=== PATIENT | male | born 1945 | race Caucasian/White ===

== ENCOUNTER 2022-12-14 12:24 | Emergency (ER) | payer MEDICARE, SELFPAY ==
[2022-12-14 12:25] VITALS: BP 159/96; PULSE 106; RESP 16; TEMP 36.6; O2SAT 98; BMI 18.8
[2022-12-14 13:20] VITALS: O2SAT 98
--- NOTE | 2022-12-14 13:20 | EKG12_ITS ---
Test Reason : SOB Blood Pressure : / mmHG Vent. Rate : 076 BPM Atrial Rate : 076 BPM P-R Int : 176 ms QRS Dur : 076 ms QT Int : 360 ms P-R-T Axes : 070 028 067 degrees QTc Int : 405 ms Normal sinus rhythm Normal ECG Confirmed by BENNETT LAZARO, CALI ([id number]), design editor ZECHARIAH SPRINGER ([id number]) on 12/16/2022 8:53:04 AM Referred By: Confirmed By:CALI GUAJARDO MD
[2022-12-14 13:47] LABS: Absolute Lymphocyte Count 1.04 X10^3/uL (0.83-4.51); Absolute Neutrophil Count 3.5 X10^3/uL (2.0-7.7); Basophil# 0.05 X10^3/uL; Eosinophil# 0.21 X10^3/uL; Hemoglobin 13.6 g/dL (13.0-16.5); Lymphocyte # 1.04 X10^3/ul (0.83-4.51); Lymphocyte % 19.9 % (19-41); Mean Corp Hgb Conc 34.9 g/dL (32-36); Mean Corpuscular Hgb 31.1 pg (27.0-32.0); Mean Corpuscular Volume 89.2 fL (80-94); Mean Platelet Vol. 9.6 fl (6.2-12.0); Monocyte# 0.38 X10^3/uL; Monocyte% 7.3 % (0-10); NRBC Flagged by Analyzer 0 % (0-5); Neutrophil # 3.52 X10^3/uL (2.7-7.7); Neutrophil % 67.4 % (47-70); Platelet Count 274 K/mm3 (150-450); RBC Distribution Width CV 13.8 % (11.6-14.6); Red Blood Count 4.37 M/mm3 (4.6-6.2); White Blood Count 5.2 K/mm3 (4.4-11.0)
[2022-12-14 13:52] LABS: Anion Gap 6 (5-15); BUN 10 mg/dL (7-18); BUN/Creat Ratio 11.2 RATIO (10-20); Calcium,Total 9.3 mg/dL (8.5-10.1); Chloride 106 mmol/L (98-107); EST Glomerular Filtration Rate 87 mL/min (>60); Est Glom Filt Rate - Afr Amer 105 mL/min (>60); Glucose 113 mg/dL (74-106); Potassium 3.7 mmol/L (3.5-5.1); Sodium Level 139 mmol/L (136-145)
[2022-12-14 13:56] VITALS: O2SAT 98
--- NOTE | 2022-12-14 14:09 | ED.VIS.DYS ---
HPI History of Present Illness Chief Complaint: Shortness of Breath Detail of Chief Complaint: Shortness of breath and achiness Informant: patient Narrative Narrative: Patient presents the emergency department complaint of feeling short of breath and developing generalized weakness while walking. Patient states normally he walks 2 miles a day and yesterday only got for about senior care and felt just drained and like he might pass out. [place] somewhat short of breath. Patient thought he would try it again today and again did not get very far when he started feeling just weak and short of breath. He denies any chest pain. Patient denies recent illness. He does state that he was on an antibiotic that he finished 3 weeks ago for sinus infection and then after he finished the amoxicillin he developed a rash. Patient has otherwise no medical history. He denies recent travel or surgery. No history of PE or DVT. No cardiac history. PFSH PFSH Medical History no medical history Allergy/AdvReac Type Severity Reaction Status Date / Time amoxicillin Allergy Rash Verified 12/14/22 12:29 Surgical History no surgical history Social History Smoking Status: Former smoker ROS ROS ED Review of Systems ROS Unobtainable: other Constitutional Constitutional ED: Reports lethargy; Denies chills, fever(s), sweats or weight loss Eyes Eyes: Denies blurry vision, change in vision or diplopia ENT ENT ED: Denies rhinorrhea or sore throat Cardiovascular Cardiovascular: Denies chest pain, orthopnea or racing heartbeat Respiratory/Chest Respiratory/Chest: Reports dyspnea and dyspnea on exertion; Denies cough, orthopnea or sputum Gastrointestinal Gastrointestinal: Denies abdominal pain, diarrhea, nausea or vomiting Genitourinary Genitourinary ED: Denies dysuria, hematuria or urinary frequency Musculoskeletal Musculoskeletal: Denies arthralgias, back pain, myalgias or neck pain Integumentary Denies abscess, Abrasions or rash Neurologic Neurologic: Reports weakness; Denies headache(s) Psychiatric Psychiatric: Denies anxiety, depression or suicidal thoughts Endocrine Endocrinology: Denies polydipsia, polyphagia or polyuria Hematologic/Lymphatic Hematologic/Lymphatic: Denies easy bleeding, easy bruising or lymphadenopathy Allergic/Immunologic Allergic/Immunologic ED: Denies mouth swelling, tongue swelling or urticaria EXAM Physical Exam Const Vital Signs: 12/14/22 12:25 12/14/22 13:20 12/14/22 13:20 Temperature 98 F Temperature Source Temporal Pulse Rate 106 H Respiratory Rate 16 Respiratory Effort Respiratory Depth Respiratory Pattern Blood Pressure 159/96 H Blood Pressure Mean 117 Pulse Ox 98 98 98 Oxygen Delivery Method Room Air Room Air 12/14/22 13:56 12/14/22 14:25 12/14/22 16:19 Temperature Temperature Source Pulse Rate 79 76 Respiratory Rate 18 15 Respiratory Effort Short of Breath Respiratory Depth Normal Respiratory Pattern Tachypnea Blood Pressure 152/84 H 152/85 H Blood Pressure Mean 106 107 Pulse Ox 97 98 Oxygen Delivery Method Room Air Room Air Positive well nourished and well developed General Appearance ED: well developed and NAD HEENT Reports TM's clear and moist mucous membranes normocephalic and atraumatic; Negative for trauma or tenderness Tympanic Membrane ED: Yes TM's clear Eyes PERRL and EOMs intact bilaterally General Eye ED: Negative for pale conjunctiva or scleral icterus Neck no lymphadenopathy, supple and no JVD General: Negative for tenderness Chest Wall inspection of chest normal and palpation of chest normal Chest: Negative for tenderness Resp normal respiratory effort and clear to auscultation bilaterally Effort and Inspection: Negative for respiratory distress or pain with movement Auscultation: Negative for rhonchi, wheezes or diminished lung sounds Cardio regular rate, regular rhythm, S1 normal heart sound, S2 normal heart sound and no murmurs Peripheral Pulses: pulses 2+ throughout GI normal to inspection, nondistended, normoactive bowel sounds, soft to palpation, non-tender, non-distended and no masses Back/Spine no CVA tenderness and no thoracic nor lumbar tenderness Extremity normal to inspection General Extremety ED: Negative for edema General Extremity: Negative for edema Neuro oriented x3, CN's II-XII intact bilaterally, no sensory deficits noted and gait normal Sensorium / Orientation: awake, alert, oriented to person, oriented to place and oriented to time Motor Exam: strength 5/5 throughout and strength abnormal Psych mental status grossly normal Skin no rashes or lesions noted and no wounds MDM MDM MDM Narrative Medical decision making narrative: Patient presents with some exertional dyspnea and generalized weakness. In the differential would be PE versus acute coronary syndrome versus infectious etiology which I feel is less likely. Patient had an IV line established on arrival. Patient placed on a hospital monitor. EKG obtained shows sinus rhythm with a rate of 76 bpm with no acute ST segment changes. CBC with differential was normal. Chemistries unremarkable. Initial troponin was normal. D-dimer was elevated 1.04. CTA of the chest obtained was negative for PE but did show a nodule which they recommended follow-up for. Patient is aware of the nodule and states he gets a CAT scan yearly to follow this and it has not changed in size. Patient had a delta troponin obtained that was normal. At this time etiology of his exertional dyspnea and generalized weakness unclear. Entertain the possibility of cardiac etiology and we had a long discussion and shared medical decision making regarding admission for stress testing versus outpatient follow-up. Patient states that he needs to be discharged to go attend to his dog and does not want to be admitted. Patient states that he can follow-up with his primary care physicians and get an outpatient stress test. Patient is advised to return if chest pain, increasing shortness of breath, or condition should worsen anyway. Lab Data Attestation: I reviewed the patient's lab results. Labs: Laboratory Results - last 24 hr 12/14/22 12/14/22 12/14/22 13:34 13:34 14:50 WBC 5.2 RBC 4.37 L Hgb 13.6 Hct 39.0 L MCV 89.2 MCH 31.1 MCHC 34.9 RDW Std Deviation 45.0 H RDW Coeff of Cara 13.8 Plt Count 274 MPV 9.6 Immature Gran % (Auto) 0.400 Neut % (Auto) 67.4 Lymph % (Auto) 19.9 [place] % (Auto) 7.3 Eos % (Auto) 4.0 Baso % (Auto) 1.0 Absolute Neuts (auto) 3.5 Absolute Lymphs (auto) 1.04 Nucleated RBC % 0 D-Dimer Quant (PE/DVT) 1.04 H* Sodium 139 Potassium 3.7 Chloride 106 Carbon Dioxide 27.0 Anion Gap 6 BUN 10 Creatinine 0.90 Estim Creat Clear Calc 57.10 Est GFR (MDRD) Af Amer 105 Est GFR (MDRD) Non-Af 87 BUN/Creatinine Ratio 11.2 Glucose 113 H Calcium 9.3 Troponin I High Sens 12/14/22 12/14/22 14:50 17:15 WBC RBC Hgb Hct MCV MCH MCHC RDW Std Deviation RDW Coeff of Cara Plt Count MPV Immature Gran % (Auto) Neut % (Auto) Lymph % (Auto) [place] % (Auto) Eos % (Auto) Baso % (Auto) Absolute Neuts (auto) Absolute Lymphs (auto) Nucleated RBC % D-Dimer Quant (PE/DVT) Sodium Potassium Chloride Carbon Dioxide Anion Gap BUN Creatinine Estim Creat Clear Calc Est GFR (MDRD) Af Amer Est GFR (MDRD) Non-Af BUN/Creatinine Ratio Glucose Calcium Troponin I High Sens 5 6 Radiography Diagnostic Testing: Clinical Impression(s) from Imaging Studies Chest X-Ray 12/14/22 14:17 IMPRESSION: No active or acute cardiopulmonary disease. Electronically Signed: Yoni Arreola, at 14:45 EDT , Chest CTA 12/14/22 15:39 IMPRESSION: No demonstrated pulmonary embolism or arterial dissection. 7 mm nodule in the right upper lobe. 4 mm nodule in the left upper lobe. Fleischner Society Guidelines (MacMahon, et al. Radiology 2017; 284(1):228-43) suggest the following. For low-risk patients recommend follow-up chest CT at 3-6 months. If unchanged consider an additional follow-up CT at 18-24 months. Electronically Signed: Patrick Appiah MD at 17:07 EDT , 1 view chest x-ray obtained interpreted by myself as no evidence of infiltrate or pneumothorax or acute disease process. Radiology in agreement. EKG Initial EKG: Attestation: I personally reviewed and interpreted this EKG as follows: Comments: Sinus rhythm with a rate of 76 bpm with no acute ST segment changes Discharge Plan Triage Chief Complaint: Shortness of Breath ED Provider: Marycruz Kennedy Dx/Rx/DC Orders Clinical Impression: Exertional dyspnea Instructions: ED Dyspnea Primary Care Provider: Jerome Bains Referrals: Jerome Bains DO [Primary Care Provider] - 1-2 Days if not improving Disposition Disposition: Home, Self Care
--- NOTE | 2022-12-14 14:17 | RAD_ITS ---
STUDY: X-RAY CHEST REASON FOR EXAM: Male, 77 years old. Shortness of breath. TECHNIQUE: Single frontal view of the chest. COMPARISON: None. FINDINGS: Borderline cardiomegaly with aortic tortuosity and calcification. Mild hyperinflation. No demonstrated abnormality of the visualized soft tissue structures of the upper abdomen. RAD/Chest 1 View (Portable) IMPRESSION: No active or acute cardiopulmonary disease. Electronically Signed: Yoni Arreola, at 14:45 EDT ,
[2022-12-14 14:25] VITALS: BP 152/84; PULSE 79; RESP 18; O2SAT 97
[2022-12-14 15:29] LABS: Troponin-I HS 5 pg/mL (3.0-78.0)
[2022-12-14] MEDS: Aspirin 81 MG TAB.CHEW 162 MG PO (15:36)
[2022-12-14 15:37] LABS: D-Dimer Quantitative (DVT/PE) 1.04 FEU/ug/m (0.27-0.49)
--- NOTE | 2022-12-14 15:39 | CT_ITS ---
STUDY: CTA Chest WO/W Contrast Injection 12/14/2022 5:03 PM REASON FOR EXAM: Male, 77 years old. dyspnea, elevated d-dimer TECHNIQUE: The examination was performed with the intravenous administration of IV 100mL Isovue-300 contrast material. Post-processing of the angiographic images was performed, with axial imaging and 3D reconstruction. MIPS images were obtained. Individualized dose optimization techniques were used for this CT. COMPARISON: None. FINDINGS: There are degenerative changes of the shoulders. There is no pneumothorax. There is no demonstrated pleural abnormality. 7 mm nodule in the right upper lobe. 4 mm nodule in the left upper lobe. Fleischner Society Guidelines (MacMahon, et al. Radiology 2017; 284(1):228-43) suggest the following. For low-risk patients recommend follow-up chest CT at 3-6 months. If unchanged consider an additional follow-up CT at 18-24 months. There are calcifications of the coronary arteries. Normal mediastinum. Normal hilar regions. Normal pulmonary arteries. There is atherosclerotic calcification of the aortic arch with tortuosity and elongation of the aortic arch and descending thoracic aorta. There are multi-level degenerative changes of the thoracic spine. There are no acute findings of the upper abdomen. CT/CTA Chest W/WO Contrast IMPRESSION: No demonstrated pulmonary embolism or arterial dissection. 7 mm nodule in the right upper lobe. 4 mm nodule in the left upper lobe. Fleischner Society Guidelines (MacMahon, et al. Radiology 2017; 284(1):228-43) suggest the following. For low-risk patients recommend follow-up chest CT at 3-6 months. If unchanged consider an additional follow-up CT at 18-24 months. Electronically Signed: Patrick Appiah MD at 17:07 EDT ,
[2022-12-14 16:19] VITALS: BP 152/85; PULSE 76; RESP 15; O2SAT 98
[2022-12-14 18:16] LABS: Troponin-I HS 6 pg/mL (3.0-78.0)
[2022-12-14 18:35] VITALS: BP 124/69; PULSE 71; RESP 16; O2SAT 98
== END 2022-12-14 18:36 | disposition home or self-care (01) ==
PROVIDERS: Emergency Provider Emergency Medicine; PCP Family Medicine; Visit Provider Emergency Medicine
DX: R06.09 Other forms of dyspnea (principal); Z87.891 Personal history of nicotine dependence
CPT/HCPCS: 71045; 71275; 80048; 84484; 85025; 85379; 87811; 93005; 94760; 99284; Q9967; A4216

== ENCOUNTER 2024-01-04 11:58 | Emergency (ER) | payer OTHER, SELFPAY ==
[2024-01-04 11:59] VITALS: BP 147/91; PULSE 105; RESP 14; TEMP 36.9; O2SAT 97; BMI 18.8
--- NOTE | 2024-01-04 12:12 | EDS_ITS ---
HPI History of Present Illness Chief Complaint: Male Pain/Injury Narrative Narrative: 78-year-old male states he has problems with his prostate. Over the last few weeks, he has had intermittent dribbling mixed with steady streams of urine. He states that his primary care provider started him on Flomax. He skipped a few days because of side effects because it made him very tired and wiped out. He was trying to catch up, and was taking it perhaps every other day, now presents with intermittent urinary retention. He states he has to stand and force his urine. He denies any hematuria, no other symptoms. He is afraid that his bladder may explode. PFSH PFSH Allergy/AdvReac Type Severity Reaction Status Date / Time amoxicillin Allergy Rash Verified 12/14/22 12:29 Social History Smoking Status: Former smoker ROS ROS ED ROS Narrative Constitutional: No fever, no chills. HEENT: No sore throat. No neck pain. No loss of vision. No rhinorrhea. Cardiovascular: No chest pain. No palpitations. No pedal edema. Respiratory: No cough, no shortness of breath. Abdominal: No abdominal pain. No nausea. No vomiting. Genitourinary: No dysuria. No hematuria. Intermittent urine dribbling versus steady stream when trying to urinate. Musculoskeletal: No myalgias. No arthralgias. Neurologic: No headaches. No dizziness. No lightheadedness. Skin: No rash. No change in color. Psychiatric: No depression. No anxiety. EXAM Physical Exam Narrative Exam Narrative: Afebrile. Vital signs noted. HEENT: Normocephalic. Atraumatic. PERRL, EOMI. Neck soft and supple. No point tenderness or step off. Cardiovascular: Regular rate and rhythm. No murmurs, rubs, or gallops appreciated. Respiratory: No tachypnea. Lungs clear to auscultation bilaterally. Gastrointestinal: Abdomen soft, nontender, with normoactive bowel sounds. No rebound or guarding. Neurological: Awake. Alert. Nonfocal, nonlateralizing. Skin: No rash. Normal color. No pallor. Musculoskeletal: No pedal edema. Full range of motion extremities. Const Vital Signs: 01/04/24 11:59 Temperature 98.5 F Temperature Source Temporal Pulse Rate 105 H Respiratory Rate 14 Blood Pressure 147/91 H Blood Pressure Mean 109 Pulse Ox 97 Oxygen Delivery Method Room Air MDM MDM MDM Narrative Medical decision making narrative: Concern is for enlarged prostate causing intermittent urinary retention versus urinary tract infection. I ordered a bladder scan and a UA. I obtained basic laboratory work and reviewed it. He has a normal white count of 6.5, hemoglobin normal at 15.3, hematocrit 45.4, platelet count normal at 306. Electrolyte panel is significant for sodium of 134 which I think is nonspecific, he was bolused normal saline 1 L intravenously. He has a normal BUN/low at 6 with creatinine normal at 1.08. Urinalysis was obtained and is negative for ketones and negative for infection with 0-5 WBCs. I do not feel antibiotics are indicated. His postvoid residual bladder scan only showed 2 mL. At this point in time, I feel he be discharged to follow-up with his primary care provider, and he was referred to urology as well. He was told that he should start to take his Flomax again 1 tablet daily as he had been instructed previously because he had stopped this previously. I do not feel he requires observation or admission. Return instructions reviewed. Disposition is discharged home in stable condition. Lab Data Attestation: I reviewed the patient's lab results. Labs: Laboratory Results - last 24 hr 01/04/24 01/04/24 12:25 12:34 WBC 6.5 RBC 5.05 Hgb 15.3 Hct 45.4 MCV 89.9 MCH 30.3 MCHC 33.7 RDW Std Deviation 43.9 RDW Coeff of Cara 13.3 Plt Count 306 MPV 8.9 Immature Gran % (Auto) 0.300 Neut % (Auto) 73.9 H Lymph % (Auto) 17.5 L Weber % (Auto) 6.6 Eos % (Auto) 0.9 Baso % (Auto) 0.8 Absolute Neuts (auto) 4.8 Absolute Lymphs (auto) 1.14 Nucleated RBC % 0 Sodium 134 L Potassium 3.7 Chloride 100 Carbon Dioxide 30.0 Anion Gap 4 L BUN 6 L Creatinine 1.08 Estim Creat Clear Calc 46.79 Est GFR (MDRD) Af Amer 85 Est GFR (MDRD) Non-Af 70 BUN/Creatinine Ratio 5.6 L Glucose 134 H Calcium 9.8 Urine Color Yellow Urine Clarity Clear Urine pH 7.0 Ur Specific [place] 1.010 Urine Protein Negative Urine Glucose (UA) Normal Urine Ketones Negative Urine Occult Blood 10 H Urine Nitrite Negative Urine Bilirubin Negative Urine Urobilinogen Normal Ur Leukocyte Esterase 25 H Urine RBC 0-5 SEEN Urine WBC 0-5 SEEN Ur Squamous Epith Cells 0-5 SEEN Urine Bacteria 0 SEEN Urine Mucus 0 SEEN Discharge Plan Triage Chief Complaint: Male Pain/Injury ED Provider: Ubaldo Chan Dx/Rx/DC Orders Clinical Impression: Difficulty urinating, Decreased urine stream Instructions: ED Dysuria, Uncertain Cause (Adult) Primary Care Provider: Jerome Bains Referrals: Jerome Bains DO [Primary Care Provider] - 3-5 Days Rashawn Sanches MD [Med Staff - Active Staff] - As soon as possible Activity Restrictions/Additional Instructions: You should restart your flomax 1 tablet by mouth daily as previously directed by your primary care provider. Follow up with Dr. Sanches with urology as soon as possible. Print Language: Icelandic Disposition Disposition: Home, Self Care
[2024-01-04] MEDS: 0.9% Normal Saline (1000mL) 1,000 ML 999 ML IV (12:25)
[2024-01-04 12:40] LABS: Absolute Lymphocyte Count 1.14 X10^3/uL (0.83-4.51); Absolute Neutrophil Count 4.8 X10^3/uL (2.0-7.7); Basophil# 0.05 X10^3/uL; Basophil% 0.8 % (0-1); Eosinophil# 0.06 X10^3/uL; Eosinophils% 0.9 % (0-5); Hematocrit 45.4 % (40-54); Hemoglobin 15.3 g/dL (13.0-16.5); Lymphocyte # 1.14 X10^3/ul (0.83-4.51); Lymphocyte % 17.5 % (19-41); Mean Corp Hgb Conc 33.7 g/dL (32-36); Mean Corpuscular Hgb 30.3 pg (27.0-32.0); Mean Corpuscular Volume 89.9 fL (80-94); Mean Platelet Vol. 8.9 fl (6.2-12.0); Monocyte# 0.43 X10^3/uL; Monocyte% 6.6 % (0-10); NRBC Flagged by Analyzer 0 % (0-5); Neutrophil # 4.83 X10^3/uL (2.7-7.7); Neutrophil % 73.9 % (47-70); Platelet Count 306 K/mm3 (150-450); RBC Distribution Width CV 13.3 % (11.6-14.6); RBC Distribution Width SD 43.9 fl (35.1-43.9); Red Blood Count 5.05 M/mm3 (4.6-6.2); White Blood Count 6.5 K/mm3 (4.4-11.0)
[2024-01-04 12:45] LABS: Bacteria 0 SEEN /hpf (None Seen); Mucous, Urine 0 SEEN /hpf (<or=2+)
[2024-01-04 12:47] LABS: Color, Urine Yellow (Yellow); Glucose, Dipstick Normal (Normal); Ketone-Dipstick Negative (Negative); Leukocyte Esterase-Dipstick 25 /ul (Negative); Nitrite-Dipstick Negative (Negative); Occult Blood-Urine 10 /ul (Negative); Protein-Dipstick Negative (Negative); Urine Bilirubin Dipstick Negative (Negative); Urine Clarity Clear (Clear); Urine Urobilinogen Normal (Normal)
[2024-01-04 12:55] LABS: Red Blood Cells-Urine 0-5 SEEN /hpf (0-5); Squamous Epithelial Cells - UA 0-5 SEEN /hpf (0-5); White Blood Cells 0-5 SEEN /hpf (0-5)
[2024-01-04 12:59] LABS: Anion Gap 4 (5-15); BUN 6 mg/dL (7-18); BUN/Creat Ratio 5.6 RATIO (10-20); Calcium,Total 9.8 mg/dL (8.5-10.1); Chloride 100 mmol/L (98-107); Creatinine, Serum 1.08 mg/dL (0.70-1.30); EST Glomerular Filtration Rate 70 mL/min (>60); Est Glom Filt Rate - Afr Amer 85 mL/min (>60); Estimated Creatinine Clearance 46.79 ml/min; Glucose 134 mg/dL (74-106); Potassium 3.7 mmol/L (3.5-5.1); Sodium Level 134 mmol/L (136-145)
[2024-01-04 14:09] VITALS: BP 161/82; PULSE 79; RESP 16; TEMP 35.9; O2SAT 97
== END 2024-01-04 14:09 | disposition home or self-care (01) ==
PROVIDERS: Emergency Provider Emergency Medicine; PCP Family Medicine; Visit Provider Emergency Medicine
DX: R33.9 Retention of urine, unspecified (principal); Z87.891 Personal history of nicotine dependence
CPT/HCPCS: 80048; 81001; 85025; 99282; J7030; A4216

== ENCOUNTER 2024-01-06 12:42 | Emergency (ER) | payer OTHER, SELFPAY ==
[2024-01-06 12:43] VITALS: BP 147/84; PULSE 115; RESP 16; TEMP 37.1; O2SAT 97; BMI 19.1
--- NOTE | 2024-01-06 12:53 | EX.ED.DYSGE1 ---
HPI History of Present Illness Chief Complaint: Hypertension Informant: patient Onset/Context/Timing Onset: Today Context: Gradual Onset Timing: Waxes and wanes Quality: Lightheaded Location: Generalized Worsened by: Nothing Relieved by: Nothing Narrative Narrative: Patient presents with elevated blood pressure that he noticed today. Patient states that his blood pressure at home was 230s systolic. Patient states he was feeling lightheaded. Patient states he checked his blood pressure with a home blood pressure cuff that goes around his wrist. Patient states that he is feeling like he might pass out. Patient denies any chest pain or shortness of breath. Patient denies any nausea or vomiting. Patient denies any diaphoresis. Patient states that he is on Flomax but does not like the way it makes him feel. Patient states that he is unable to urinate unless he takes his Flomax daily. [facility] Medical History (Updated 01/06/24 @ 15:[address] Robert Frias DO) BPH (benign prostatic hyperplasia) Hypertension Home Medications ?Medication ?Instructions ?Recorded ?Last Taken ?Type tamsulosin 0.4 mg capsule 0.4 mg PO DAILY 01/06/24 Unknown History Allergy/AdvReac Type Severity Reaction Status Date / Time amoxicillin Allergy Rash Verified 01/06/24 12:45 Social History Smoking Status: Former smoker ROS ROS ED Constitutional Constitutional ED: Denies chills or fever(s) Eyes Eyes: Reports blurry vision; Denies change in vision ENT ENT ED: Denies rhinorrhea or sore throat Cardiovascular Cardiovascular: Denies chest pain or palpitations Respiratory/Chest Respiratory/Chest: Denies cough or dyspnea Gastrointestinal Gastrointestinal: Denies nausea or vomiting Genitourinary Genitourinary ED: Denies dysuria or hematuria Musculoskeletal Musculoskeletal: Denies back pain or neck pain Integumentary Denies abscess or rash Neurologic Neurologic: Denies headache(s) or weakness Allergic/Immunologic Allergic/Immunologic ED: Denies mouth swelling or urticaria EXAM Physical Exam Const Vital Signs: 01/06/24 12:43 01/06/24 12:55 01/06/24 14:43 Temperature 98.7 F Temperature Source Temporal Pulse Rate 115 H 81 Respiratory Rate 16 16 Respiratory Effort Normal Respiratory Pattern Normal Blood Pressure 147/84 H 148/71 H Blood Pressure Mean 105 96 Pulse Ox 97 97 Oxygen Delivery Method Room Air Room Air Positive well nourished and well developed General Appearance ED: well developed and NAD HEENT Reports moist mucous membranes Neck supple and no JVD Resp normal respiratory effort and clear to auscultation bilaterally Cardio regular rate and regular rhythm GI non-tender and non-distended Palpation: soft Extremity normal to inspection General Extremety ED: Negative for edema or tenderness General Extremity: Negative for edema Neuro oriented x3, CN's II-XII intact bilaterally and no sensory deficits noted Sensorium / Orientation: alert Motor Exam: strength 5/5 throughout Psych mental status grossly normal MDM MDM MDM Narrative Medical decision making narrative: Differential diagnosis includes hypertensive urgency, hypertensive emergency, accelerated hypertension, cardiac dysrhythmia, cardiac ischemia, electrolyte abnormality, and acute kidney injury. EKG will be obtained to assess for cardiac dysrhythmia and cardiac ischemia. Chest x-ray will be obtained to assess for pneumonia and widened mediastinum. CBC will be obtained to assess for leukocytosis and anemia. Basic metabolic profile will be obtained to assess for electrolyte abnormality and renal function. High-sensitivity troponin will be obtained to assess for cardiac ischemia. Lab Data Attestation: I reviewed the patient's lab results. Lab results narrative: CBC was reviewed and was within normal limits. Basic metabolic profile was reviewed and was within normal limits. High-sensitivity troponin was reviewed and was normal. Labs: Laboratory Results - last 24 hr 01/06/24 13:42 WBC 4.6 RBC 4.40 L Hgb 13.1 Hct 39.1 L MCV 88.9 MCH 29.8 MCHC 33.5 RDW Std Deviation 43.7 RDW Coeff of Cara 13.3 Plt Count 241 MPV 9.0 Immature Gran % (Auto) 0.200 Neut % (Auto) 66.9 Lymph % (Auto) 22.7 [place] % (Auto) 7.6 Eos % (Auto) 1.3 Baso % (Auto) 1.3 H Absolute Neuts (auto) 3.1 Absolute Lymphs (auto) 1.04 Nucleated RBC % 0 Sodium 136 Potassium 3.8 Chloride 103 Carbon Dioxide 26.0 Anion Gap 7 BUN 5 L Creatinine 0.88 Estim Creat Clear Calc 58.21 Est GFR (MDRD) Af Amer 108 Est GFR (MDRD) Non-Af 89 BUN/Creatinine Ratio 5.7 L Glucose 129 H Calcium 9.4 Troponin I High Sens 5 Radiography Chest X-Ray - ED: 2 View, Read by ED Physician, Read by Radiologist and No Acute Disease Diagnostic Testing: Clinical Impression(s) from Imaging Studies Chest X-Ray 01/06/24 13:45 IMPRESSION: Mild increased markings in the right infrahilar region. Early infiltrate should be ruled out. Electronically Signed: Hollis Wahl MD at 14:00 EDT , PA and lateral chest x-rays obtained. There are 2 views. On my independent interpretation, there are mild increased markings in the right infrahilar region. Bony thorax is normal. There is no cardiomegaly noted. This was interpreted by the radiologist was also independently reviewed by myself. EKG Initial EKG: Attestation: I personally reviewed and interpreted this EKG as follows: Interpretation: Sinus Rhythm (78) and No Acute Injury Pattern Comments: EKG was obtained. On my independent interpretation, it showed a normal sinus rhythm with a rate of 78. TX interval, QRS interval, and QTc intervals were all normal. [place] was normal. There are no acute ST or T wave changes. Prior EKG tracings: available for review Prior: Unchanged (12/14/2022) Treatment and Re-Evaluation :: Patient was advised of his findings. Since the patient does not have any cough, fever, chills, or shortness of breath, I do not feel that the chest x-ray findings are from a pneumonia. Patient is feeling better on reevaluation. Patient was instructed to follow-up with his primary care physician in 5 to 7 days. Patient was instructed to continue to monitor his blood pressure at home. Patient was instructed to return if worse in any way. Patient understood and was agreeable with the plan. All questions were answered. Discharge Plan Triage Chief Complaint: Hypertension ED Provider: Robert Frias Dx/Rx/DC Orders Clinical Impression: Hypertension, BPH (benign prostatic hyperplasia) Instructions: ED High Blood Pressure Hypertension Prescriptions: No Action tamsulosin 0.4 mg capsule 0.4 mg PO DAILY Primary Care Provider: Jerome Bains Referrals: Jerome Bains DO [Primary Care Provider] - 5-7 Days Print Language: Thai Disposition Disposition: Home, Self Care
--- NOTE | 2024-01-06 13:27 | EKG12_ITS ---
Test Reason : HTN Blood Pressure : / mmHG Vent. Rate : 078 BPM Atrial Rate : 078 BPM P-R Int : 168 ms QRS Dur : 072 ms QT Int : 348 ms P-R-T Axes : 079 018 072 degrees QTc Int : 396 ms Normal sinus rhythm Normal ECG When compared with ECG of 14-DEC-2022 13:26, No significant change was found Confirmed by BENNETT LAZARO, CALI ([id number]), primer expeditor and drier ZECHARIAH SPRINGER ([id number]) on 01/11/2024 10:04:25 AM Referred By: Confirmed By:CALI GUAJARDO MD
--- NOTE | 2024-01-06 13:45 | RAD_ITS ---
STUDY: X-RAY CHEST REASON FOR EXAM: Male, 78 years old. Hypertension TECHNIQUE: PA and lateral views of the chest. COMPARISON: Comparison is made with prior study dated December 14, 2022. FINDINGS: EKG electrodes are seen. Hyperinflation. Mild increased markings in the right infrahilar region. Early infiltrate should be ruled out. There is no demonstrated pleural abnormality. Normal size heart. Normal mediastinum and aileen. Normal visualized pulmonary arteries. Normal visualized aortic arch and descending thoracic aorta. There are diffuse degenerative changes of the visualized thoracic spine. Normal visualized ribs, clavicles, and shoulders. There is no demonstrated abnormality of the visualized soft tissue structures of the upper abdomen. RAD/Chest PA and Lateral IMPRESSION: Mild increased markings in the right infrahilar region. Early infiltrate should be ruled out. Electronically Signed: Hollis Wahl MD at 14:00 EDT ,
[2024-01-06 13:55] LABS: Absolute Lymphocyte Count 1.04 X10^3/uL (0.83-4.51); Absolute Neutrophil Count 3.1 X10^3/uL (2.0-7.7); Basophil# 0.06 X10^3/uL; Basophil% 1.3 % (0-1); Eosinophil# 0.06 X10^3/uL; Eosinophils% 1.3 % (0-5); Hematocrit 39.1 % (40-54); Hemoglobin 13.1 g/dL (13.0-16.5); Lymphocyte # 1.04 X10^3/ul (0.83-4.51); Lymphocyte % 22.7 % (19-41); Mean Corp Hgb Conc 33.5 g/dL (32-36); Mean Corpuscular Hgb 29.8 pg (27.0-32.0); Mean Corpuscular Volume 88.9 fL (80-94); Monocyte# 0.35 X10^3/uL; Monocyte% 7.6 % (0-10); NRBC Flagged by Analyzer 0 % (0-5); Neutrophil # 3.06 X10^3/uL (2.7-7.7); Neutrophil % 66.9 % (47-70); Platelet Count 241 K/mm3 (150-450); RBC Distribution Width CV 13.3 % (11.6-14.6); RBC Distribution Width SD 43.7 fl (35.1-43.9); White Blood Count 4.6 K/mm3 (4.4-11.0)
[2024-01-06 14:34] LABS: Anion Gap 7 (5-15); BUN 5 mg/dL (7-18); BUN/Creat Ratio 5.7 RATIO (10-20); Calcium,Total 9.4 mg/dL (8.5-10.1); Chloride 103 mmol/L (98-107); Creatinine, Serum 0.88 mg/dL (0.70-1.30); EST Glomerular Filtration Rate 89 mL/min (>60); Est Glom Filt Rate - Afr Amer 108 mL/min (>60); Estimated Creatinine Clearance 58.21 ml/min; Glucose 129 mg/dL (74-106); Potassium 3.8 mmol/L (3.5-5.1); Sodium Level 136 mmol/L (136-145); Troponin-I HS 5 pg/mL (3.0-78.0)
[2024-01-06 14:43] VITALS: BP 148/71; PULSE 81; RESP 16; O2SAT 97
[2024-01-06 15:53] VITALS: BP 155/72; PULSE 79; RESP 15; TEMP 36.7; O2SAT 99
== END 2024-01-06 15:57 | disposition home or self-care (01) ==
PROVIDERS: Emergency Provider Emergency Medicine; PCP Family Medicine; Visit Provider Emergency Medicine
DX: I10 Essential (primary) hypertension (principal); N40.0 Benign prostatic hyperplasia without lower urinary tract symptoms; Z87.891 Personal history of nicotine dependence; Z79.899 Other long term (current) drug therapy
CPT/HCPCS: 71046; 80048; 84484; 85025; 93005; 99284; A4216

== ENCOUNTER 2024-01-23 09:19 | Emergency (ER) | payer OTHER, SELFPAY ==
[2024-01-23 09:20] VITALS: BP 185/96; PULSE 100; RESP 18; TEMP 36.4; O2SAT 94
--- NOTE | 2024-01-23 09:36 | EDS_ITS ---
HPI HPI - GI History of Present Illness Chief Complaint: Diarrhea Informant: patient Nausea/Vomiting/Emesis GI Symptom: Negative for Nausea or Vomiting Diarrhea/Melena/Hematochezia GI Symptom: Positive for Diarrhea; Negative for Melena or Hematochezia Onset: Today Stool Quality: Positive for Loose Severity: Mild Associated Symptoms Associated Symptoms: Negative for Dysuria, Frequency, Hematuria or Urgency Narrative Narrative: 78-year-old male who may have been having diarrhea. This is his fourth visit in the last month or so. It is difficult to ascertain a specific complaint from the patient. There is no one else here with him. He does know he is in the hospital. He knows the month and the year. Prior similar symptoms: Yes Recent Illness/Hospitalization: No PFSH PFSH Medical History BPH (benign prostatic hyperplasia) Hypertension Home Medications ?Medication ?Instructions ?Recorded ?Last Taken ?Type tamsulosin 0.4 mg capsule 0.4 mg PO DAILY 01/06/24 Unknown History Allergy/AdvReac Type Severity Reaction Status Date / Time amoxicillin Allergy Rash Verified 01/23/24 09:20 Social History Smoking Status: Former smoker ROS ROS ED ROS Narrative Loose stools. Review of Systems ROS Unobtainable: Denies due to encephalopathy Constitutional Constitutional ED: Denies chills ENT ENT ED: Denies ear pain Cardiovascular Cardiovascular: Denies chest pain Respiratory/Chest Respiratory/Chest: Denies cough or dyspnea Gastrointestinal Gastrointestinal: Reports diarrhea; Denies abdominal pain, constipation, melena, nausea or vomiting Genitourinary Genitourinary ED: Denies dysuria or hematuria Musculoskeletal Musculoskeletal: Denies arthralgias or back pain Integumentary Denies abscess or Abrasions Neurologic Neurologic: Denies headache(s) Psychiatric Psychiatric: Denies anxiety Endocrine Endocrinology: Denies polydipsia Hematologic/Lymphatic Hematologic/Lymphatic: Denies easy bleeding Allergic/Immunologic Allergic/Immunologic ED: Denies mouth swelling, tongue swelling or urticaria EXAM Physical Exam Narrative Exam Narrative: Well-appearing 78-year-old male. Vital signs stable afebrile. Initial blood pressure elevated at 185 or 96. He does not look septic toxic or in distress. There is no one here with him. H EENT exam pupils round reactive light. No facial droop. No trauma. Mucous membranes mildly dry. Neck nontender no lymphadenopathy. Lungs clear to auscultation bilaterally. Heart regular rhythm rate about 95 no murmur. Chest wall and ribs nontender. Abdomen soft nontender. No hernia or mass. Back nontender. He is moving all 4 extremities. He knows month, year he knows where he is at. No focal motor deficits. He is answering questions and following commands. Const Vital Signs: 01/23/24 09:20 Temperature 97.6 F L Temperature Source Temporal Pulse Rate 100 Respiratory Rate 18 Blood Pressure 185/96 H Blood Pressure Mean 125 Pulse Ox 94 Oxygen Delivery Method Room Air Positive well nourished and well developed; Negative for obese, cachectic, contractures or unkempt General Appearance ED: well developed and NAD; Negative for unkempt, cachectic, contractures or pallor Nutritional Appearance: Negative for cachectic or obese HEENT Reports dry mucous membranes; Denies moist mucous membranes normocephalic and atraumatic; Negative for trauma or tenderness Mouth ED: Yes dry mucous membranes Mouth: dry mucous membranes Eyes PERRL and EOMs intact bilaterally General Eye ED: Negative for pale conjunctiva or scleral icterus Neck no lymphadenopathy, supple and no JVD General: Negative for tenderness Carotids: Negative for other Resp normal respiratory effort and clear to auscultation bilaterally Effort and Inspection: Negative for respiratory distress Auscultation: Negative for rales, rhonchi or wheezes Cardio regular rate, regular rhythm, S1 normal heart sound, S2 normal heart sound and no murmurs Rate: Negative for bradycardia or tachycardic Rhythm: Negative for abnormal rhythm GI non-tender, non-distended and no masses Inspection: Negative for abdominal distention Auscultation: normoactive bowel sounds Palpation: soft; Negative for tender or guarding Back/Spine no CVA tenderness General Back: Negative for CVA tenderness Cervical Spine: Negative for cervical spine tenderness Thoracic Spine / Upper Back: Negative for thoracic spinal tenderness Lumbar Spine / Lower Back: Negative for lumbar spinal tenderness Coccyx: Negative for other Extremity full ROM General Extremety ED: Negative for edema, tenderness or other findings General Extremity: Negative for edema or other findings Neuro CN's II-XII intact bilaterally and moves all extremities Sensorium / Orientation: alert, oriented to person, oriented to place and oriented to time; Negative for orientation impaired, confused, lethargic or stuporous Motor Exam: strength 5/5 throughout Psych mental status grossly normal and thought process normal Appearance: Negative for unkempt Attitude: No agitated Mood & Affect: Negative for depressed, anxious or tearful Skin no wounds General Skin Exam: Negative for jaundice or pallor Lesions: no lesions Rashes: no rashes Trauma: Negative for abrasion Nails: Negative for discolored MDM MDM MDM Narrative Medical decision making narrative: 78-year-old male from home history of BPH on Flomax and hypertension. Complaining of some loose stools. he has a very benign exam. This is his fourth visit about the last 6 weeks. Has had no significant findings on the prior visits I reviewed those labs. Receive IV fluids. Screening labs will be obtained. His abdomen is benign. I do not think he needs any imaging. Repeat exam patient doing well at 10:36 AM. We went over his test. He will be discharged home. History & Record Review Discussion w/independent historian: Patient Additional record(s) reviewed:: Prior inpatient record, Prior outpatient record, Prior ED visit and Prior labs Lab Data Attestation: I reviewed the patient's lab results. Lab results narrative: Electrolytes show sodium 132. Gap of 7. BUN of 4 creatinine 0.8. Glucose 125. Liver enzymes normal. WBC is normal. H and H normal. Labs: Laboratory Results - last 24 hr 01/23/24 09:42 WBC 5.7 RBC 4.99 Hgb 14.9 Hct 43.5 MCV 87.2 MCH 29.9 MCHC 34.3 RDW Std Deviation 42.0 RDW Coeff of Cara 13.2 Plt Count TNP MPV 9.9 Immature Gran % (Auto) 0.400 Neut % (Auto) 74.3 H Lymph % (Auto) 16.0 L [place] % (Auto) 7.2 Eos % (Auto) 1.2 Baso % (Auto) 0.9 Absolute Neuts (auto) 4.2 Absolute Lymphs (auto) 0.91 Nucleated RBC % 0 Platelet Estimate ADEQUATE Sodium 132 L Potassium 4.3 Chloride 103 Carbon Dioxide 22.0 Anion Gap 7 BUN 4 L Creatinine 0.87 Est GFR (MDRD) Af Amer 109 Est GFR (MDRD) Non-Af 90 BUN/Creatinine Ratio 4.6 L Glucose 125 H Calcium 9.5 Total Bilirubin 0.80 AST 36 ALT 19 Alkaline Phosphatase 75 Total Protein 7.6 Albumin 4.1 Globulin 3.5 Albumin/Globulin Ratio 1.2 Discharge Plan Triage Chief Complaint: Diarrhea ED Provider: Jean Shirley Dx/Rx/DC Orders Clinical Impression: Diarrhea Instructions: ED Diarrhea, Unknown Cause Prescriptions: No Action tamsulosin 0.4 mg capsule 0.4 mg PO DAILY Primary Care Provider: Jerome Bains Referrals: Jerome Bains, [Primary Care Provider] - 3-5 Days if not improving Activity Restrictions/Additional Instructions: Plenty of fluids and rest. Follow up with your Dr as needed. Print Language: Estonian Disposition Disposition: Home, Self Care
[2024-01-23] MEDS: 0.9% Normal Saline (1000mL) 1,000 ML 1000 ML IV (09:44)
[2024-01-23 09:51] LABS: Absolute Lymphocyte Count 0.91 X10^3/uL (0.83-4.51); Absolute Neutrophil Count 4.2 X10^3/uL (2.0-7.7); Basophil# 0.05 X10^3/uL; Basophil% 0.9 % (0-1); Eosinophil# 0.07 X10^3/uL; Eosinophils% 1.2 % (0-5); Hematocrit 43.5 % (40-54); Hemoglobin 14.9 g/dL (13.0-16.5); Lymphocyte # 0.91 X10^3/ul (0.83-4.51); Mean Corp Hgb Conc 34.3 g/dL (32-36); Mean Corpuscular Hgb 29.9 pg (27.0-32.0); Mean Corpuscular Volume 87.2 fL (80-94); Mean Platelet Vol. 9.9 fl (6.2-12.0); Monocyte# 0.41 X10^3/uL; Monocyte% 7.2 % (0-10); NRBC Flagged by Analyzer 0 % (0-5); Neutrophil # 4.22 X10^3/uL (2.7-7.7); Neutrophil % 74.3 % (47-70); POSITIVE COUNT YES; RBC Distribution Width CV 13.2 % (11.6-14.6); Red Blood Count 4.99 M/mm3 (4.6-6.2); White Blood Count 5.7 K/mm3 (4.4-11.0)
[2024-01-23 10:11] LABS: ALB/GLOB Ratio 1.2 RATIO (0.9-2.4); AST(SGOT) 36 U/L (15-37); Alanine Aminotransfer ALT/SGPT 19 U/L (16-61); Albumin, Serum 4.1 g/dL (3.2-5.0); Alkaline Phosphatase 75 U/L (45-117); Anion Gap 7 (5-15); BUN 4 mg/dL (7-18); BUN/Creat Ratio 4.6 RATIO (10-20); Calcium,Total 9.5 mg/dL (8.5-10.1); Chloride 103 mmol/L (98-107); Creatinine, Serum 0.87 mg/dL (0.70-1.30); EST Glomerular Filtration Rate 90 mL/min (>60); Est Glom Filt Rate - Afr Amer 109 mL/min (>60); Globulin 3.5 g/dL (2.2-4.2); Glucose 125 mg/dL (74-106); Potassium 4.3 mmol/L (3.5-5.1); Protein, Total 7.6 g/dL (6.4-8.2); Sodium Level 132 mmol/L (136-145)
[2024-01-23 10:15] LABS: Differential Indicated SCAN CRITERIA MET
[2024-01-23 10:16] LABS: Platelet Estimate ADEQUATE (ADEQ)
[2024-01-23 10:41] VITALS: BP 180/70; PULSE 81; RESP 18; TEMP 36.4; O2SAT 98
== END 2024-01-23 10:47 | disposition home or self-care (01) ==
PROVIDERS: Emergency Provider Emergency Medicine; PCP Family Medicine; Visit Provider Emergency Medicine
DX: R19.7 Diarrhea, unspecified (principal); Z87.891 Personal history of nicotine dependence
CPT/HCPCS: 80053; 85025; 96360; 99282; J7030; A4216

== ENCOUNTER 2024-01-25 15:43 | Emergency (ER) | payer OTHER, SELFPAY ==
[2024-01-25 15:44] VITALS: BP 153/108; PULSE 100; RESP 16; TEMP 36.8; O2SAT 97; BMI 18.9
[2024-01-25 17:44] VITALS: BP 163/82; PULSE 80; RESP 18; O2SAT 98
--- NOTE | 2024-01-25 17:53 | ED.RN ---
BLADDER SCAN PT FOR 190CC. VOID 90CC, RESCAN @ 124 CC.
--- NOTE | 2024-01-25 18:24 | EDS_ITS ---
HPI History of Present Illness Chief Complaint: Complaint Informant: patient Onset/Context/Timing Onset: Today Context: Gradual Onset Timing: Continuous Worsened by: Nothing Relieved by: Nothing Narrative Narrative: Patient presents with urinary retention that began today. Patient states he has been unable to urinate anything today. Patient denies any pain or pressure. Patient denies any recent dysuria or hematuria. Patient denies any fevers or chills. Patient denies any nausea or vomiting. Patient states he has had episodes of urinary retention in the past. Patient is on tamsulosin for BPH. [facility] Medical History BPH (benign prostatic hyperplasia) Hypertension Home Medications ?Medication ?Instructions ?Recorded ?Last Taken ?Type tamsulosin 0.4 mg capsule 0.4 mg PO DAILY 01/06/24 Unknown History Allergy/AdvReac Type Severity Reaction Status Date / Time amoxicillin Allergy Rash Verified 01/23/24 09:20 Social History Smoking Status: Former smoker ROS ROS ED Constitutional Constitutional ED: Denies chills or fever(s) Eyes Eyes: Denies blurry vision or change in vision ENT ENT ED: Denies rhinorrhea or sore throat Cardiovascular Cardiovascular: Denies chest pain or palpitations Respiratory/Chest Respiratory/Chest: Denies cough or dyspnea Gastrointestinal Gastrointestinal: Denies nausea or vomiting Genitourinary Genitourinary ED: Denies dysuria or hematuria Musculoskeletal Musculoskeletal: Denies back pain or neck pain Integumentary Denies abscess or rash Neurologic Neurologic: Denies headache(s) or weakness Allergic/Immunologic Allergic/Immunologic ED: Denies mouth swelling or urticaria EXAM Physical Exam Const Vital Signs: 01/25/24 15:44 01/25/24 17:44 01/25/24 20:00 Temperature 98.2 F 97.1 F L Temperature Source Temporal Pulse Rate 100 80 69 Respiratory Rate 16 18 17 Blood Pressure 153/108 H 163/82 H 139/79 H Blood Pressure Mean 123 109 99 Pulse Ox 97 98 99 Oxygen Delivery Method Room Air Positive well nourished and well developed General Appearance ED: well developed and NAD HEENT Reports moist mucous membranes Neck supple and no JVD Resp normal respiratory effort and clear to auscultation bilaterally Cardio regular rate and regular rhythm GI non-tender and non-distended Palpation: soft Back/Spine no CVA tenderness Neuro oriented x3, CN's II-XII intact bilaterally and no sensory deficits noted Sensorium / Orientation: alert Motor Exam: strength 5/5 throughout Psych mental status grossly normal MDM MDM MDM Narrative Medical decision making narrative: Differential diagnosis includes urinary retention and urinary tract infection. Bladder scan was performed and showed 200 cc of urine in the bladder. Nash catheter will be placed for urinary retention. Urinalysis will be obtained to assess for urinary tract infection. Lab Data Lab results narrative: Urinalysis was reviewed. There is no evidence of urinary tract infection or hematuria. Labs: Laboratory Results - last 24 hr 01/25/24 18:39 Urine Color Yellow Urine Clarity Clear Urine pH 6.0 Ur Specific [place] 1.015 Urine Protein Negative Urine Glucose (UA) Normal Urine Ketones 15 H Urine Occult Blood 10 H Urine Nitrite Negative Urine Bilirubin Negative Urine Urobilinogen Normal Ur Leukocyte Esterase 25 H Urine RBC 0 SEEN Urine WBC 0 SEEN Ur Squamous Epith Cells 0 SEEN Urine Bacteria 0 SEEN Urine Mucus 0 SEEN Treatment and Re-Evaluation :: Nash catheter was placed. Patient felt better after this. Patient was given a leg bag. Patient cannot tolerate the Nash catheter. Therefore, he has for to be removed. This was removed. Patient was instructed to follow-up with his primary care physician in 3 to 5 days. Patient was instructed to return if worse in any way. Patient understood and was agreeable with the plan. All questions were answered. Discharge Plan Triage Chief Complaint: Complaint ED Provider: Robert Frias Dx/Rx/DC Orders Clinical Impression: Acute urinary retention, BPH (benign prostatic hyperplasia) Instructions: ED BPH (Enlarged Prostate), ED Nash Catheter, Care Prescriptions: No Action tamsulosin 0.4 mg capsule 0.4 mg PO DAILY Primary Care Provider: Jerome Bains Referrals: Jerome Bains DO [Primary Care Provider] - 3-5 Days Print Language: Northern Irish Disposition Disposition: Home, Self Care Discharge Date/Time: 01/25/24 20:01
--- NOTE | 2024-01-25 18:43 | ED.RN ---
This RN placed moreno catheter in patient. Patient had a very difficult time comprehending the purpose of the catheter. This RN educated about moreno and how to change large bag to leg bag. Pt. verbalizes concern that cannot live his life with the catheter. Pt. wanted to leave immediately after catheter was placed. I explained to patient he needs to wait for urinalysis results and discharge paperwork.
[2024-01-25 19:15] LABS: Bacteria 0 SEEN /hpf (None Seen); Mucous, Urine 0 SEEN /hpf (<or=2+); Red Blood Cells-Urine 0 SEEN /hpf (0-5); Squamous Epithelial Cells - UA 0 SEEN /hpf (0-5); White Blood Cells 0 SEEN /hpf (0-5)
[2024-01-25 19:21] LABS: Color, Urine Yellow (Yellow); Glucose, Dipstick Normal (Normal); Ketone-Dipstick 15 mg/dl (Negative); Leukocyte Esterase-Dipstick 25 /ul (Negative); Nitrite-Dipstick Negative (Negative); Occult Blood-Urine 10 /ul (Negative); Protein-Dipstick Negative (Negative); Specific Gravity, Urine 1.015 (1.002-1.030); Urine Bilirubin Dipstick Negative (Negative); Urine Clarity Clear (Clear); Urine Urobilinogen Normal (Normal)
[2024-01-25 20:00] VITALS: BP 139/79; PULSE 69; RESP 17; TEMP 36.2; O2SAT 99
--- NOTE | 2024-01-25 20:00 | ED.RN ---
Pt wanting cath removed d/t being unconfortable. Educated pt on purpose and use. VO Dr. Frias to D/c cath.
== END 2024-01-25 20:01 | disposition home or self-care (01) ==
PROVIDERS: Emergency Provider Emergency Medicine; PCP Family Medicine; Visit Provider Emergency Medicine
DX: R33.9 Retention of urine, unspecified (principal); N40.1 Benign prostatic hyperplasia with lower urinary tract symptoms; Z87.891 Personal history of nicotine dependence
CPT/HCPCS: 51702; 81001; 99283

== ENCOUNTER 2024-05-19 10:24 | Emergency (ER) | payer OTHER, SELFPAY ==
[2024-05-19 10:25] VITALS: BP 131/104; PULSE 113; RESP 16; TEMP 36.6; O2SAT 98; BMI 18.7
--- NOTE | 2024-05-19 10:35 | EX.ED.DYSGE1 ---
HPI History of Present Illness Chief Complaint: Complaint [facility] Medical History BPH (benign prostatic hyperplasia) Hypertension Home Medications ?Medication ?Instructions ?Recorded ?Last Taken ?Type tamsulosin 0.4 mg capsule 0.4 mg PO DAILY 01/06/24 Unknown History Allergy/AdvReac Type Severity Reaction Status Date / Time amoxicillin Allergy Rash Verified 01/23/24 09:20 Social History Smoking Status: Unknown if ever smoked EXAM Physical Exam Const Vital Signs: 05/19/24 10:25 Temperature 97.8 F Temperature Source Temporal Pulse Rate 113 H Respiratory Rate 16 Blood Pressure 131/104 H Blood Pressure Mean 113 Pulse Ox 98 Oxygen Delivery Method Room Air MDM MDM MDM Narrative Medical decision making narrative: HISTORY OF PRESENT ILLNESS: 78 M here with concern for issues with a prostate implant device . He states he does not have a device currently but he did in the past. The patient further states for the last 2 days he has had redness pain and warmth to the anterior left mid thigh. He denies any trauma to the area. Denies any fever or vomiting. Denies any history of diabetes. Denies any urinary complaint abdominal pain chest pain shortness of breath or cough. REVIEW OF SYSTEMS: Pertinent positives: Skin redness, pain Pertinent negatives: Vomiting, chest pain PHYSICAL EXAM: Nursing triage notes reviewed, Vital signs reviewed Constitutional: please see mdm Abdomen: Soft, there is no tenderness, rigidity, rebound or guarding, no obvious peritoneal signs, no palpable pulsatile abdominal masses, no auscultated abdominal bruit : No CVAT, normal-appearing genitalia, no scrotal edema, no penile discharge, normal testicular lie. Extremities: No edema Skin: Approximately 2 x 4 cm area of redness, no palpable fluctuance, induration crepitus or bullae noted MEDICAL DECISION MAKING: Chief Complaint: Prostate implant device issues External records reviewed: Reviewed the patient's allergies, problem list, vital signs, current medications and prior images and encounters. Reviewed ED encounter from January 2024 for which he presented with urinary retention. This time a Moreno was placed Factors affecting care: BPH Social determinants of health: none History obtained from others: none Consults: none MDM Narrative: The patient was initially afebrile, tachycardic with a rate of 113 otherwise hemodynamically stable. Exam consistent with cellulitis. Patient was initially alert and orient x 3 however he was a poor historian. Describing medical technologist generalist that he does not have any more but his complaint was about an area of redness and pain noted to his left anterior thigh. While the patient's triage note mentioned medical technologist generalist problem patient has no such medical technologist generalist present. Normal exam. The only abnormality I could find on exam was signs of cellulitic changes in the left anterior thigh consistent with likely irritation/cellulitis from moreno bag connector. I considered the following differential diagnosis: Cellulitis, abscess, necrotizing fasciitis. Clinical exam was not consistent with abscess or necrotizing fasciitis. Will give a short course of doxycycline-follow with his PCP and/or urology. The patient and/or family, caregivers express understanding. The patient and/or family, caregivers agrees with the plan. Shared decision making: I will have a discussion with the patient and or visitors regarding risk/benefits of further testing or admission. They will be made aware of of the risk/benefits inherent in this decision they will be given the opportunity to voice understanding. Total critical care time today provided was at least 0 minutes. This excludes separately billable procedures. Critical care time (if documented) is secondary to the patient having high probability of clinically significant/life threatening deterioration in the patient's condition which required my urgent intervention. Impression: 1. Acute cellulitis 2. Hypertension Dispo: Discharge home This note was generated with [employer] dictation software. It may contain incorrect words, spelling, and punctuation that were not noted in review of the chart prior to signing. Discharge Plan Triage Chief Complaint: Complaint ED Provider: Arash Prieto Dx/Rx/DC Orders Clinical Impression: Cellulitis Instructions: Cellulitis Dc Prescriptions: No Action tamsulosin 0.4 mg capsule 0.4 mg PO DAILY Primary Care Provider: Jerome Bains Referrals: Jerome Bains DO [Primary Care Provider] - Rashawn Sanches MD [Med Staff - Active Staff] - Activity Restrictions/Additional Instructions: Thank you for trusting us with your care today! Your clinical exam is consistent with a superficial skin infection that we refer to a cellulitis. Cellulitis is treated with antibiotics. You have been prescribed a short course of antibiotics. Your antibiotic is called doxycycline. Please take as prescribed for neck 7 days. Please take Tylenol (2 pills, 650 mg), ibuprofen (2 pills, 400 mg) every 6 hours as needed for pain and fever control. Please return to the emergency department if your symptoms change or worsen. Specific if you vomiting cannot tolerate antibiotics. Specifically redness and pain increases. Please follow with your primary care physician for further outpatient evaluation and management. Print Language: Uzbek Disposition Disposition: Home, Self Care
--- OUTSIDE RECORDS SUMMARY | 2024-05-19 11:00 | XMS RPT_ITS | CCD ---
Author Organization [facility] Care Team Providers Care Crushing Machine Operator Name Role Phone JUSTIN NEVILLE Unavailable Unavailable JEROME BAINS Unavailable Unavailable Jerome Bains Unavailable Unavailable UNKNOWN, PROVIDER Unavailable Unavailable Jerome Bains Unavailable Unavailable Jerome Bains DO F Primary Care Provider [phone] Jerome Bains DO F Primary Care Provider [phone] JEROME BAINS Attending Unavailable JEROME BAINS Primary Care Unavailable JEROME BAINS Attending Unavailable JEROME BAINS Primary Care Unavailable Allergies Allergy Classification Reported Allergen(s) Allergy Type Date of Onset Reaction(s) Facility (4 sources) Ciprofloxacin Drug Allergy 11-09-2021 Rash (4 sources) Doxycycline Drug Allergy 11-09-2021 (3 sources) Amoxicillin Drug Allergy 12-14-2022 Dermatitis Medications Current Medications Medication Drug Class(es) Dates Sig (Normalized) Sig (Original) allopurinol 300 mg oral tablet (4 sources) Xanthine Oxidase Inhibitor take 1 tablet by mouth once daily allopurinol (Zyloprim) 300 MG tablet Take 300 mg by mouth daily. 0 Active benazepril hydrochloride 10 mg oral tablet (4 sources) Angiotensin Converting Enzyme Inhibitor Start: 05-12-2022 take 1 tablet by mouth once daily benazepril (Lotensin) 10 MG tablet Take 1 tablet by mouth daily. 0 05/12/2022 Active Magnesium (4 sources) take 1 tablet by mouth once daily magnesium 250 MG tablet Take 250 mg by mouth daily. 0 Active Multiple Vitamin tablet (4 sources) take 1 tablet by mouth once daily Multiple Vitamin tablet Take 1 tablet by mouth daily. 0 Active tamsulosin hydrochloride 0.4 mg oral capsule (2 sources) alpha-Adrenergic Tan Start: 12-01-2023 End: 11-30-2024 take 1 capsule by mouth once daily tamsulosin (Flomax) 0.4 MG 24 hr capsule Take 1 capsule (0.4 mg) by mouth daily. 30 capsule 11 12/01/2023 11/30/2024 Active triamcinolone acetonide 0.005 mg/mg topical ointment (2 sources) Corticosteroid Start: 11-26-2022 End: 11-26-2023 triamcinolone (Kenalog) 0.5 % ointment Apply topically 2 times daily. 60 g 0 11/26/2022 11/26/2023 Active Problems Active Problems Problem Classification Problem Date Documented Date Episodic/Chronic Chronic obstructive pulmonary disease and bronchiectasis (8 sources) Chronic obstructive lung disease; Translations: [Chronic obstructive pulmonary disease, unspecified] Onset: 03-20-2015 05-07-2022 Chronic Diverticulosis and diverticulitis (6 sources) Diverticulosis of large intestine without perforation or abscess without bleeding; Translations: [Diverticular disease] Onset: 06-08-2017 05-07-2022 Chronic Essential hypertension (8 sources) Hypertensive disorder; Translations: [Essential (primary) hypertension] Onset: 03-20-2015 05-07-2022 Chronic Gout and other crystal arthropathies (8 sources) Gout; Translations: [Gout, unspecified] Onset: 03-20-2015 05-07-2022 Chronic Hyperplasia of prostate (7 sources) Benign prostatic hyperplasia; Translations: [Benign prostatic hyperplasia without lower urinary tract symptoms] Onset: 11-09-2021 05-07-2022 Chronic Osteoarthritis (4 sources) Bilateral arthropathy of joint of shoulder regions; Translations: [Primary osteoarthritis, right shoulder] Onset: 11-09-2021 05-07-2022 Chronic Other diseases of kidney and ureters (2 sources) Other obstructive and reflux uropathy; Translations: [Other obstructive and reflux uropathy] Onset: 12-01-2023 Episodic Spondylosis; intervertebral disc disorders; other back problems (8 sources) Degeneration of cervical intervertebral disc; Translations: [Other cervical disc degeneration, unspecified cervical region] Onset: 03-20-2015 05-07-2022 Chronic Past or Other Problems Problem Classification Problem Date Documented Da te Episodic/Chronic Other screening for suspected conditions (not mental disorders or infectious disease) (4 sources) Raised prostate specific antigen; Translations: [Elevated prostate specific antigen [PSA]] Onset: 11-09-2021 05-07-2022 Episodic Results Test Name Value Interpretation Reference Range Facil yanira 02-03-2024 36 Placed call to patilinda nt to discuss issues and can schedule next available appointment with PCP or go to if symptoms are too urgent. Message left on voicemail to return call. [facility] 36on 02-02-2024 36 Name of caller: Tesfaye boyce Contact phone number: [phone] Relationship to Patient: patient Provider: [facility] Practice: [facility] Chief Complaint/Reason for Call: Patient really wants to talk to someone from the medical staff regarding his urination issues. He had stopped taking Flomax as prescribed. He is frustrated and concerned for his health. He had missed appointment today at 3 pm. He was in the office building but felt the urgency to urinate but could not., so he went home. Please advise. Best time of day caller can be reached: any Patient advised that office/PCP has 24-48 business hours to return their call: Yes [facility] 36on 01-23-2024 36 S: Patient spoke gomez olivarez [facility] nurse regarding bowel area pain and watery stool B: Onset of symptoms/concern yesterday about 10 am. A: States he went to the emergency room today regarding these symptoms. He advised emergency room that he wanted a test to see what was going on. They advised him to see his PCP office. Yesterday patient started having burning bowel pain and watery orange stool and heard a puff sound. He has had 3 watery stools. States he was also having trouble urinating but that seems to be better. Last void was one hour ago. Patient wants a form of testing. R: Appointment made with Dr Ibrahim on February 01 at 1500. Negative/Positive response to Covid questions. Advised patient to bring photo ID, insurance card, medication list, and arrive 10 minutes early to appointment. Patient requesting note to office for earlier appointment and an order for a test to see what is happening. Patient understands care advice. No further needs at this time. Patient instructed to call back with new or worsening symptoms. Reason for Disposition [1] Abnormal color is unexplained AND [2] persists > 24 hours Protocols used: Stools - Unusual [id number] [facility] 36on 01-05-2024 36 Message released to patient as written. yes Patient's further questions if applicable: no Were all questions from office addressed or relayed to the patient from encounter: N/A [facility] 36 Placed call to alba soni to discuss appointment to be scheduled sooner, and to let him know that this appointment is the soonest available due to vacations. Patient will be put on wait list. Message left on voicemail to return call. [facility] 36 Name of Caller: Tesfaye boyce Contact Reason for Appointment: ED F/U [facility], Trouble Urinating, patient advised to follow up within 3-5 days earliest appt available is 01/17/[address] Gonzales patient requesting an earlier appt. Office Name: [facility] Medication Refills need, if any: n/a Medication Name: n/a [facility] Office Visiton 12-01-2023 Follow-up visit [id number] Grimaldo 1945 M Date Provider Department Center 12/01/2023 [id number] LANGE [facility] Family History Problem Relation Age of Onset Breast cancer Mother Comments: survivor Alzheimer's disease Mother Comments: of 89 High Blood Pressure Father Comments: smoker Lung cancer Father Comments: age 66 No Known Problems Maternal Grandmother Comments: age 89 No Known Problems Maternal Grandfather Comments: MVA age 83 No Known Problems Paternal Grandmother Comments: age 82 No Known Problems Paternal Grandfather Comments: age 91 Family Status - Relation Status Age at Mother 89 Father 66 Maternal Grandmother Maternal Grandfather Paternal Grandmother Paternal Grandfather Level of Service:[address] [place] OFFICE/OUTPATIENT ESTABLISHED LOW MDM 20 MIN Reason for Visit and Comments: Follow-up [979982] - Med check [facility] PATINSon 12-01-2023 JHOANA SERRANO ch with staff in 4 wks [facility] Progress Noteon 12-01-2023 Progress Note [facility] [address] [facility] [address] Visit type: Established Patient Reason for Visit: Follow-up (Med check) Assessment / Plan: Elo was seen today for follow-up. Diagnoses and all orders for this visit: BPH with obstruction/lower urinary tract symptoms (Primary) Comments: Recurrent, Flomax, call with update in 4 weeks Primary hypertension Comments: Not at goal, add Flomax and recheck BP on Lotensin in 4 weeks Chronic obstructive pulmonary disease, unspecified COPD type (HCC) Gout of foot, unspecified cause, unspecified chronicity, unspecified laterality Other orders - tamsulosin (Flomax) 0.4 MG 24 hr capsule; Take 1 capsule (0.4 mg) by mouth daily. Subjective: Patient ID: Elo Lundberg is a 78 y.o. male. HPI ex-smoker with history of asymptomatic COPD presents for concerns about urinary frequency slower stream and nocturia. Apparently does get his checkups at [place] with multiple lab work, CT of the chest and has attempted urinary symptom relief with [id number] meds. No dysuria hematuria no flank pain. No abdominal pain. Review of Systems overall feeling well except for persistent shoulder and back stiffness. Nothing new. No falls or trauma. Ex-smoker for many years. CT of the chest unchanged. No chronic cough or wheezing. No pleurisy or mops this. No heartburn or abdominal pain. Bowels are regular. No melena or blood. Deferring repeat colonoscopy. No change in quality shoulder pain. Gets stiff and achy but improves with activity. Documented arthritis evident. Allergies Allergen Reactions Amoxicillin Dermatitis Very dry skin and peeling Doxycycline Fatigue, GI distress Ciprofloxacin Rash Hives, fatigue Current Outpatient Medications on File Prior to Visit Medication Sig Dispense Refill allopurinol (Zyloprim) 300 MG tablet Take 300 mg by mouth daily. benazepril (Lotensin) 10 MG tablet Take 1 tablet by mouth daily. magnesium 250 MG tablet Take 250 mg by mouth daily. Multiple Vitamin tablet Take 1 tablet by mouth daily. [] triamcinolone (Kenalog) 0.5 % ointment Apply topically 2 times daily. (Patient not taking: Reported on 12/01/2023) 60 g 0 No current facility-administered medications on file prior to visit. 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 Faust - IBS - COLONOSCOPY 11/2016 Preston-marisa ds, ? recheck 2026 HERNIA REPAIR Left 1991 Family History Problem Relation Name Age of Onset Breast cancer Mother survivor Alzheimer's disease Mother of 89 High Blood Pressure Father smoker Lung cancer Father age 66 No Known Problems Maternal Grandmother age 89 No Known Problems Maternal Grandfather MVA age 83 No Known Problems Paternal Grandmother age 82 No Known Problems Paternal Grandfather age 91 Objective: BP (!) 144/70 Pulse 68 Temp 36.5 ?C (97.7 ?F) (Temporal) Ht 5' 10 (1.778 m) Wt 134 lb (60.8 kg) SpO2 100% BMI 19.23 kg/m? Physical Exam Pleasant cooperative. Normal oropharynx and eardrums. No neck masses JVD or adenopathy. No carotid bruits. Heart is regular without ectopy or murmurs. Lungs are diminished but without rales wheezes or egophony. Abdomen soft scaphoid without pain hepatosplenomegaly masses or bruits. Pulses are adequate. No motor loss of the legs. No extremity edema. Could not find any results of his recent [facility] work[facility] so he will obtain those results Deferred ESTHER [facility] Office Visiton 06-02-2023 Follow-up visit [id number] Grimaldo 1945 M Date Provider Department Center 06/02/2023 [id number] LANGE [facility] Family History Problem Relation Age of Onset Breast cancer Mother Comments: survivor Alzheimer's disease Mother Comments: of 89 High Blood Pressure Father Comments: smoker Lung cancer Father Comments: age 66 No Known Problems Maternal Grandmother Comments: age 89 No Known Problems Maternal Grandfather Comments: MVA age 83 No Known Problems Paternal Grandmother Comments: age 82 No Known Problems Paternal Grandfather Comments: age 91 Family Status - Relation Status Age at Mother 89 Father 66 Maternal Grandmother Maternal Grandfather Paternal Grandmother Paternal Grandfather Level of Service:[address] [place] OFFICE/OUTPATIENT ESTABLISHED LOW MDM 20-29 MIN Reason for Visit and Comments: Follow-up [527014] - 6 month med check [facility] Progress Noteon 06-02-2023 Progress Note [facility] [address] [facility] [address] Visit type: Established Patient Reason for Visit: Follow-up (6 month med check) Assessment / Plan: Elo was seen today for follow-up. Diagnoses and all orders for this visit: Primary hypertension (Primary) Comments: Stable, continue benazepril he defers any cardiac work-up Gout of foot, unspecified cause, unspecified chronicity, unspecified laterality Comments: Stable, continue allopurinol and avoidance measures Chronic obstructive pulmonary disease, unspecified COPD type (HCC) Comments: Relatively asymptomatic. Continue albuterol MDI as needed prescribed by [place] system Other orders - Flu vaccine quadrivalent, for patients ages 65+, (Fluad) preservative free Subjective: Patient ID: Elo Lundberg is a 77 y.o. male. HPI ex-smoker for many years with history of COPD, pulmonary nodules, hypertension and gout presents for overall checkup. He does get all his meds from the [place] system. Of note had another CT of his chest yesterday for follow-up of nodules and they said things are unchanged and there is no need to follow-up. Also had MRI of his pelvis this past spring for elevated PSA and he was told there is no need for follow-up. Review of Systems Had some dyspnea and a URI in November in [facility] and was recommended to have a stress test but he defers that work-up. He actively walks 2 miles a day without difficulty. He thought he was just short of breath and weak from the URI. Denies exertional chest pain jaw pain or arm pain. No heartburn or dysphagia. No abdominal pain. Bowels are regular. Defers any future colonoscopies as well. Of note has a new girlfriend and feels he is very blessed and has no new concerns. Allergies Allergen Reactions Amoxicillin Dermatitis Very dry skin and peeling Doxycycline Fatigue, GI distress Ciprofloxacin Rash Hives, fatigue Current Outpatient Medications on File Prior to Visit Medication Sig Dispense Refill allopurinol (Zyloprim) 300 MG tablet Take 300 mg by mouth daily. benazepril (Lotensin) 10 MG tablet Take 1 tablet by mouth daily. magnesium 250 MG tablet Take 250 mg by mouth daily. Multiple Vitamin tablet Take 1 tablet by mouth daily. triamcinolone (Kenalog) 0.5 % ointment Apply topically 2 times daily. 60 g 0 No current facility-administered medications on file prior to visit. Patient Active Problem List Diagnosis COPD (chronic obstructive pulmonary disease) (HCC) Gout DDD (degenerative disc disease), cervical HTN (hypertension) DDD (degenerative disc disease), lumbosacral Diverticulosis BPH with elevated PSA Arthropathy of both shoulders Elevated PSA, less than 10 ng/ml Social History Tobacco Use Smoking status: Former Packs/day: 0 Types: Cigarettes Quit date: 03/20/2003 Years since quittin.2 Smokeless tobacco: Never Substance Use Topics Alcohol use: Yes Alcohol/week: 0.0 standard drinks of alcohol Past Surgical History: Procedure Laterality Date CATARACT EXTRACTION W/ INTRAOCULAR LENS IMPLANT Bilateral 2014 [facility] COLONOSCOPY [address] Faust - IBS - COLONOSCOPY 11/2016 Marily mar, ? recheck 2026 HERNIA REPAIR Left 1991 Family History Problem Relation Name Age of Onset Breast cancer Mother survivor Alzheimer's disease Mother of 89 High Blood Pressure Father smoker Lung cancer Father age 66 No Known Problems Maternal Grandmother age 89 No Known Problems Maternal Grandfather MVA age 83 No Known Problems Paternal Grandmother age 82 No Known Problems Paternal Grandfather age 91 Objective: BP 130/60 Pulse 94 Temp 37.3 ?C (99.1 ?F) (Temporal) Wt 130 lb (59 kg) SpO2 97% BMI 18.65 kg/m? Physical Exam The physical exam is generally normal. Patient appears well, alert and oriented x 3, pleasant, cooperative. Vitals are as noted. No carotid bruits. Neck supple, no abnormal adenopathy, thyroid lesions or masses. Ears, nose and throat are normal without acute findings. Lungs are diminished but clear to auscultation. Heart is regular, without murmurs, gallops or ectopy. Abdomen is soft, non tender, without masses, hepatosplenomegaly, or bruits. Normal BS evident. Extremities are normal without edema. Peripheral pulses are fair. No worrisome skin lesions. Screening neurological exam is normal without focal deficits. [facility] CT HEAD OR BRAIN W/O CONTRAS Ton 09-09-2017 CT HEAD OR BRAIN W/O CONTRAST ORIGINALCT HEAD OR BRAIN W/O CONTRAST CLINICAL STATEMENT: POST TRAUMATIC HEAD PAIN COMPARISON: None FINDINGS: This exam was performed according to our departmental dose-optimization program which includes automated exposure control, adjustment of the mA and/or kVp according to patient size and/or use of iterative reconstruction technique where applicable. The ventricles appear normal. No hemorrhage visualized. No mass effect. There is no extra-axial fluid collection. Mild patchy white matter disease visualized. No suspicious findings seen in the calvarium. The mastoids are aerated. Orbits appear grossly unremarkable. IMPRESSION: No hemorrhage or territorial infarct. Mild white matter disease is likely related to microvascular angiopathy Interpreted By: Alberto Tracyreliminary Report By: Alberto Tracy MDElectronically Signed By: Alberto Tracy MD Dictated Date: 09/09/2017 8:11:37 AM Prelim Date: 09/09/2017 8:11:37 AM Sign Date: 09/09/2017 8:14:08 AM Normal [facility] [place] [place] Abdomen/Pelvis w/ Contras ton 06-08-2017 CT Abdomen/Pelvis w/ Contrast Patient Name: ELO LUNDBERG CT Exam Date/Time 06/08/2017 14:28:[address] Abdomen/Pelvis w/ IV Contrast (IV Onl Ordering Physician DO BAINS EUGENE F. Accession Number [id number] CPT4 Codes 47504 (CT Abdomen/Pelvis w/ IV Contrast (IV Onl), Q9967 () Reason For Exam Unspecified abdominal pain Report CT ABDOMEN AND PELVIS WITH CONTRAST CLINICAL INDICATION: Lower abdominal pain and history of diverticulitis TECHNIQUE: Transaxial sequence through the abdomen and pelvis with 3 mm reconstruction following oral contrast with dynamic intravenous infusion of 75 mL of 370 mg% contrast media. Coronal and sagittal reconstructions included. Dose reduction was employed with automated exposure control. COMPARISON: None FINDINGS: Chest base: Normal. Liver: Normal size and contour. No focal lesion. Biliary tree: Normal caliber. Spleen: Normal. Adrenals: Normal. Pancreas: Normal. Kidneys: Symmetric contrast enhancement without hydronephrosis. No focal lesion. Free fluid: None. Retroperitoneal/mesenter ic lymphadenopathy: None. Aorta: Normal caliber with peripheral calcification. Bowel: No bowel dilatation is noted. Sigmoid diverticulosis is noted and there is some mild wall thickening involving the sigmoid colon but no surrounding inflammatory change or adjacent fluid collection. No free air is noted. Abdominal wall: Normal. Pelvic organs/viscera: No mass identified. Pelvic lymphadenopathy: None. Osseous structures: Normal. IMPRESSION: Sigmoid diverticulosis. Mild wall thickening may reflect evidence of prior diverticulitis. No acute process identified. Report Dictated on Final Dictating Physician: MD LYONS JEFFREY Signed Date and Time: 06/08/2017 2:43 pm Signed by: MD LYONS JEFFREY Transcribed Date and Time: 06/08/2017 2:44 [facility] Date Time Vital Sign Value Performing Clinician Junaid schultz 12-01-2023 14:45-0400 Diastolic blood pressure 70 mm[Hg] Jerome Bains [employer] Work Phone: [employer] 12-01-2023 14:45-0400 Heart rate 68 /min Jerome Bains [employer] Work Phone: [employer] 12-01-2023 14:45-0400 Systolic blood pressure 144 mm[Hg] Jerome Bains [employer] Work Phone: [employer] 12-01-2023 13:40-0400 Body height 177.8 cm Jerome Bains [employer] Work Phone: [employer] 12-01-2023 13:40-0400 Body mass index (BMI) [Ratio] 19.23 kg/m2 Jerome Bains [employer] Work Phone: [employer] 12-01-2023 13:40-0400 Body temperature 97.7 [degF] Jerome Bains DO [facility] 12-01-2023 13:40-0400 Body weight 60.78 kg Jerome Bains DO [facility] 12-01-2023 13:40-0400 SaO2% (BldA) [Mass fraction] 100 % Jerome Bains DO [facility] 06-02-2023 14:05-0500 Body mass index (BMI) [Ratio] 18.65 kg/m2 Jerome Bains DO [facility] 06-02-2023 14:05-0500 Body temperature 99.1 [degF] Jerome Bains DO Work Phone: [facility] 06-02-2023 14:05-0500 Body weight 58.97 kg Jerome Bains DO Work Phone: [facility] 06-02-2023 14:05-0500 Diastolic blood pressure 60 mm[Hg] Jerome Bains DO Work Phone: [facility] 06-02-2023 14:05-0500 Heart rate 94 /min Jerome Bains DO Work Phone: [facility] 06-02-2023 14:05-0500 SaO2% (BldA) [Mass fraction] 97 % Jerome Bains DO Work Phone: [facility] 06-02-2023 14:05-0500 Systolic blood pressure 130 mm[Hg] Jerome Bains DO Work Phone: [facility] Encounters Encounter Date Encounter Type Care Provider Facility Start: 01-05-2024 Telephone encounter Jerome Escobedo Jannette kilgore DO Work Phone: [facility] Comment on above: Appointment Request; Release of Information Start: 12-01-2023 End: 12-01-2023 Office outpatient visit 15 minutes Jerome aBins DO Work Phone: [facility] Comment on above: BPH with obstruction /lower urinary tract symptoms (Primary Dx); Primary hypertension; Chronic obstructive pulmonary disease, unspecified COPD type (HCC); Gout of foot, unspecified cause, unspecified chronicity, unspecified laterality Start: 12-01-2023 End: 12-01-2023 ambulatory [facility] Start: 06-02-2023 End: 06-02-2023 Office outpatient visit 15 minutes Jerome Escobedo Kizzydariela DO Work Phone: [facility] Comment on above: Primary hypertension (Primary Dx); Gout of foot, unspecified cause, unspecified chronicity, unspecified laterality; Chronic obstructive pulmonary disease, unspecified COPD type (HCC) Start: 06-02-2023 End: 06-02-2023 ambulatory [facility] Start: 11-26-2022 Telephone encounter Jerome Bhatia jame DO Work Phone: [facility] Comment on above: Orders (CT-Abd/Pelvi s) Start: 09-08-2017 End: 09-09-2017 Ambulatory JUSTIN NEVILLE Facility:[facility] Start: 06-08-[address] [facility] Plan of Treatment Date Care Activity Detail Author Start: 05-28-2024 End: 05-28-2024 Patient encounter procedure 05/28/2024 1:30 PM EST Office Visit [facility] [address] [place] [address] Jerome Bains DO [address] [place] [address] [place] [address] [facility] Start: 01-17-2024 End: 01-17-2024 Patient encounter procedure 01/17/2024 11:20 AM EDT Office Visit [facility] [address] [place] [address] Charlie Gonzales PA-C [address] [place] [address] [place] [address] [facility] Start: 12-29-2023 End: 12-29-2023 Clinical Support 12/29/2023 2:00 PM EDT Clinical Support [facility] [address] [place] [address] [facility] Start: 12-01-2023 End: 12-01-2023 Patient encounter procedure 12/01/2023 2:00 PM EDT Office Visit [facility] [address] [place] [address] Jerome Bains DO [address] [place] [address] [facility] Start: 07-25-2023 Medicare Advantage Annual Wellness Visit Medicare Advantage Annual Wellness Visit Start: 05-27-2023 End: 05-27-2023 Patient encounter procedure 05/27/2023 Office Visit Family Medicine Jerome Bains, [address] [place] [address] [facility] Start: 03-25-2023 COVID-19 Vaccine ( season) COVID-19 Vaccine ( season) Start: 03-25-2023 Influenza vaccination Influenz a Vaccine (Season Ended) Start: 2004 RSV Immunization age d 60 or older (1 - 1-dose 60+ series) RSV Immunization aged 60 or older (1 - 1-dose 60+ series) Start: 1994 Zoster Vaccines (1 of 2) Zoster Vacc olivia (1 of 2) Start: 1963 DTaP/Tdap/Td Vaccine s (1 - Tdap) DTaP/Tdap/Td Vaccines (1 - Tdap) Start: 1962 Hepatitis C screening Hepatitis C Sc reening Start: 1956 Depression Screening Depression Scre ening Start: 03-01-1945 COVID-19 Vaccine (#1) COVID-19 Vacci ne (#1) Start: 1944 Hepatitis B Vaccines (1 of 3 - 3-dose series) Hepatitis B Vaccines (1 of 3 - 3-dose series) Start: 1944 Lipid panel Lipid Panel [facility] Start: 1944 Medicare Advantage Annual Wellness Visit (AWV) Medicare Advantage Annual Wellness Visit (AWV) Immunizations Immunization Date Immunization Notes Care Provider Fa luiza 06-02-2023 Influenza, Seasonal, Quadrivalent, Adjuvanted Jerome Petrilla DO Work Phone: 05-16-2019 Influenza, injectabl e, Madin Marquette Canine Kidney, preservative free, quadrivalent Jerome Petrilla DO Work Phone: 05-16-2019 influenza virus vacc ine, unspecified formulation Jerome Petrilla DO Work Phone: 06-03-2018 Influenza, injectabl e, Madin Yumiko Canine Kidney, preservative free, quadrivalent Jerome Petrilla DO Work Phone: 04-15-2017 Seasonal trivalent influenza vaccine, adjuvanted, preservative free Jerome Petrilla DO Work Phone: 06-15-2016 influenza, injectabl e, quadrivalent, contains preservative Jerome Petrilla DO Work Phone: 06-01-2016 influenza, high dose seasonal, preservative-free Jerome Petrilla DO Work Phone: 02-19-2016 pneumococcal conjuga te vaccine, 13 valent Jerome Petrilla DO Work Phone: 05-12-2015 influenza, high dose seasonal, preservative-free Jerome Petrilla DO Work Phone: 02-12-2015 pneumococcal polysac charide vaccine, 23 valent Jerome Petrilla DO Work Phone: 05-17-2012 influenza virus vacc ine, unspecified formulation Jerome Petrilla DO Work Phone: 05-17-2012 influenza virus vacc ine, whole virus Jerome Bains DO Work Phone: 03-11-2005 tetanus toxoid, adsorbed Eug reillylinda Bains DO Work Phone: 03-11-2005 tetanus toxoid, unsp ecified formulation Jerome Bains DO Work Phone: Payers Date Payer Category Payer Medicare [employer] UHC AARP MEDICARE ADVANTAGE LIFE1 [id number] 2022-Present [phone] [address] [address] [place] [address] Medicare HMO [id number] 2022 Medicare [id number] 2017 Unknown [id number] Unknown Social History Date Type Detail Facility Start: 11-26-2022 End: 12-01-2023 Tobacco smoking status NHIS Ex-smoker End: 03-20-2003 History of tobacco use Current smoker End: 03-20-2003 History of tobacco use Cigarette Smoker Start: 11-26-2022 End: 12-01-2023 Tobacco use and exposure Smokeless tobacco non-user [facility] Start: 11-26-2022 End: 12-01-2023 Alcohol intake Current drinker of alcohol (finding) Start: 11-26-2022 End: 12-01-2023 Alcohol intake Start: 1945 Sex Assigned At Not on file [facility] Start: 11-16-2022 End: 11-26-2022 Exposure to SARS-CoV-2 (event) Not sure Start: 01-25-2023 End: 12-01-2023 Tobacco use panel Clinical Notes 11-26-2022 to 01-05-2024 Telephone Encounter - Rosmery Estrella - 01/05/2024 9:14 AM EDTTelephone Encounter - Rosmery Estrella - 01/05/2024 9:14 AM EDTTelephone Encounter - Samreen Piper LPN - 01/05/2024 9:07 AM EDT Note Date & Type Note Facility 01-05-2024 Telephone encount er Note Message released to patient as written. yes Patient's further questions if applicable: no Were all questions from office addressed or relayed to the patient from encounter: N/A 01-05-2024 Miscellaneous Notes Formattin g of this note might be different from the original. Message released to patient as written. yes Patient's further questions if applicable: no Were all questions from office addressed or relayed to the patient from encounter: N/A Placed call to patient to discuss appointment to be scheduled sooner, and to let him know that this appointment is the soonest available due to vacations. Patient will be put on wait list. Message left on voicemail to return call. Name of Caller: Elo Contact Reason for Appointment: ED F/U [place] [facility], Trouble Urinating, patient advised to follow up within 3-5 days earliest appt available is 01/17/[address] Gonzales patient requesting an earlier appt. Office Name: [facility] Medication Refills need, if any: n/a Medication Name: n/a documented in this encounter 01-05-2024 Telephone encount er Note Placed call to patient to discuss appointment to be scheduled sooner, and to let him know that this appointment is the soonest available due to vacations. Patient will be put on wait list. Message left on voicemail to return call. 01-05-2024 Telephone encount er Note Name of Caller: Elo Contact Reason for Appointment: ED F/U [facility], Trouble Urinating, patient advised to follow up within 3-5 days earliest appt available is 01/17/[address] Gonzales patient requesting an earlier appt. Office Name: [facility] Medication Refills need, if any: n/a Medication Name: n/a 12-01-2023 History of Presen t illness Narrative Images from the original note were not included. [facility] [address] [place] [address] [address] [facility] [address] Visit type: Established Patient Reason for Visit: Follow-up (Med check) Assessment / Plan: Elo was seen today for follow-up. Diagnoses and all orders for this visit: BPH with obstruction/lower urinary tract symptoms (Primary) Comments: Recurrent, Flomax, call with update in 4 weeks Primary hypertension Comments: Not at goal, add Flomax and recheck BP on Lotensin in 4 weeks Chronic obstructive pulmonary disease, unspecified COPD type (HCC) Gout of foot, unspecified cause, unspecified chronicity, unspecified laterality Other orders - tamsulosin (Flomax) 0.4 MG 24 hr capsule; Take 1 capsule (0.4 mg) by mouth daily. Subjective: Patient ID: Elo Lundberg is a 78 y.o. male. HPI ex-smoker with history of asymptomatic COPD presents for concerns about urinary frequency slower stream and nocturia. Apparently does get his checkups at [facility] with multiple lab work, CT of the chest and has attempted urinary symptom relief with beyw-asw-[id number] meds. No dysuria hematuria no flank pain. No abdominal pain. Review of Systems overall feeling well except for persistent shoulder and back stiffness. Nothing new. No falls or trauma. Ex-smoker for many years. CT of the chest unchanged. No chronic cough or wheezing. No pleurisy or mops this. No heartburn or abdominal pain. Bowels are regular. No melena or blood. Deferring repeat colonoscopy. No change in quality shoulder pain. Gets stiff and achy but improves with activity. Documented arthritis evident. Allergies Allergen Reactions Amoxicillin Dermatitis Very dry skin and peeling Doxycycline Fatigue, GI distress Ciprofloxacin Rash Hives, fatigue Current Outpatient Medications on File Prior to Visit Medication Sig Dispense Refill allopurinol (Zyloprim) 300 MG tablet Take 300 mg by mouth daily. benazepril (Lotensin) 10 MG tablet Take 1 tablet by mouth daily. magnesium 250 MG tablet Take 250 mg by mouth daily. Multiple Vitamin tablet Take 1 tablet by mouth daily. [] triamcinolone (Kenalog) 0.5 % ointment Apply topically 2 times daily. (Patient not taking: Reported on 12/01/2023) 60 g 0 No current facility-administered medications on file prior to visit. 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 Faust - IBS - COLONOSCOPY 11/2016 Marily ds, ? recheck 2026 HERNIA REPAIR Left 1991 Family History Problem Relation Name Age of Onset Breast cancer Mother survivor Alzheimer's disease Mother of 89 High Blood Pressure Father smoker Lung cancer Father age 66 No Known Problems Maternal Grandmother age 89 No Known Problems Maternal Grandfather MVA age 83 No Known Problems Paternal Grandmother age 82 No Known Problems Paternal Grandfather age 91 Objective: BP (!) 144/70 Pulse 68 Temp 36.5 C (97.7 F) (Temporal) Ht 5' 10 (1.778 m) Wt 134 lb (60.8 kg) SpO2 100% BMI 19.23 kg/m Physical Exam Pleasant cooperative. Normal oropharynx and eardrums. No neck masses JVD or adenopathy. No carotid bruits. Heart is regular without ectopy or murmurs. Lungs are diminished but without rales wheezes or egophony. Abdomen soft scaphoid without pain hepatosplenomegaly masses or bruits. Pulses are adequate. No motor loss of the legs. No extremity edema. Could not [facility] any [facility] so he will obtain those results Deferred ESTHER documented in this encounter 12-01-2023 Instructions Jerome Bains DO - 12/01/2023 2:00 PM EDT BP ch with staff in 4 wks documented in this encounter 06-02-2023 History of Presen t illness Narrative Images from the original note were not included. [facility] [address] [facility] [facility] [address] [facility] [address] Visit type: Established Patient Reason for Visit: Follow-up (6 month med check) Assessment / Plan: Elo was seen today for follow-up. Diagnoses and all orders for this visit: Primary hypertension (Primary) Comments: Stable, continue benazepril he defers any cardiac work-up Gout of foot, unspecified cause, unspecified chronicity, unspecified laterality Comments: Stable, continue allopurinol and avoidance measures Chronic obstructive pulmonary disease, unspecified COPD type (HCC) Comments: Relatively asymptomatic. Continue albuterol MDI as needed prescribed by [facility] Other orders - Flu vaccine quadrivalent, for patients ages 65+, (Fluad) preservative free Subjective: Patient ID: Elo Lundberg is a 77 y.o. male. HPI ex-smoker for many years with history of COPD, pulmonary nodules, hypertension and gout presents for overall checkup. [facility] Of note had another CT of his chest yesterday for follow-up of nodules and they said things are unchanged and there is no need to follow-up. Also had MRI of his pelvis this past spring for elevated PSA and he was told there is no need for follow-up. Review of Systems Had some dyspnea and a URI in November in [facility] and was recommended to have a stress test but he defers that work-up. He actively walks 2 miles a day without difficulty. He thought he was just short of breath and weak from the URI. Denies exertional chest pain jaw pain or arm pain. No heartburn or dysphagia. No abdominal pain. Bowels are regular. Defers any future colonoscopies as well. Of note has a new girlfriend and feels he is very blessed and has no new concerns. Allergies Allergen Reactions Amoxicillin Dermatitis Very dry skin and peeling Doxycycline Fatigue, GI distress Ciprofloxacin Rash Hives, fatigue Current Outpatient Medications on File Prior to Visit Medication Sig Dispense Refill allopurinol (Zyloprim) 300 MG tablet Take 300 mg by mouth daily. benazepril (Lotensin) 10 MG tablet Take 1 tablet by mouth daily. magnesium 250 MG tablet Take 250 mg by mouth daily. Multiple Vitamin tablet Take 1 tablet by mouth daily. triamcinolone (Kenalog) 0.5 % ointment Apply topically 2 times daily. 60 g 0 No current facility-administered medications on file prior to visit. Patient Active Problem List Diagnosis COPD (chronic obstructive pulmonary disease) (HCC) Gout DDD (degenerative disc disease), cervical HTN (hypertension) DDD (degenerative disc disease), lumbosacral Diverticulosis BPH with elevated PSA Arthropathy of both shoulders Elevated PSA, less than 10 ng/ml Social History Tobacco Use Smoking status: Former Packs/day: 0 Types: Cigarettes Quit date: 03/20/2003 Years since quittin.2 Smokeless tobacco: Never Substance Use Topics Alcohol use: Yes Alcohol/week: 0.0 standard drinks of alcohol Past Surgical History: Procedure Laterality Date CATARACT EXTRACTION W/ INTRAOCULAR LENS IMPLANT Bilateral 2014 [facility] COLONOSCOPY [address] Faust - IBS - COLONOSCOPY 11/2016 [place]-marisa ds, ? recheck 2026 HERNIA REPAIR Left 1991 Family History Problem Relation Name Age of Onset Breast cancer Mother survivor Alzheimer's disease Mother of 89 High Blood Pressure Father smoker Lung cancer Father age 66 No Known Problems Maternal Grandmother age 89 No Known Problems Maternal Grandfather MVA age 83 No Known Problems Paternal Grandmother age 82 No Known Problems Paternal Grandfather age 91 Objective: BP 130/60 Pulse 94 Temp 37.3 C (99.1 F) (Temporal) Wt 130 lb (59 kg) SpO2 97% BMI 18.65 kg/m Physical Exam The physical exam is generally normal. Patient appears well, alert and oriented x 3, pleasant, cooperative. Vitals are as noted. No carotid bruits. Neck supple, no abnormal adenopathy, thyroid lesions or masses. Ears, nose and throat are normal without acute findings. Lungs are diminished but clear to auscultation. Heart is regular, without murmurs, gallops or ectopy. Abdomen is soft, non tender, without masses, hepatosplenomegaly, or bruits. Normal BS evident. Extremities are normal without edema. Peripheral pulses are fair. No worrisome skin lesions. Screening neurological exam is normal without focal deficits. documented in this encounter 11-26-2022 Telephone encount er Note Orders closed 11-26-2022 Miscellaneous Notes Formattin g of this note might be different from the original. Orders closed 05/24/22: pt given orders for CT-Abd/Pelvis. Pt never scheduled test. Does he still need or can orders be closed? documented in this encounter 11-26-2022 Telephone encount er Note 05/24/22: pt given orders for CT-Abd/Pelvis. Pt never scheduled test. Does he still need or can orders be closed? [facility] Evaluation note Diagnosis Primary hypertension- Primary Unspecified essential hypertension Gout of foot, unspecified cause, unspecified chronicity, unspecified laterality Chronic obstructive pulmonary disease, unspecified COPD type (HCC) [facility] Diagnosis BPH with obstruction/lower urinary tract symptoms- Primary Primary hypertension Unspecified essential hypertension Chronic obstructive pulmonary disease, unspecified COPD type (HCC) Gout of foot, unspecified cause, unspecified chronicity, unspecified laterality documented in this encounter [facility] Summary Purpose Family History No Family History Records FoundNo Family History Records FoundNo Family History Records Found Advance Directives No Advanced Directives Records FoundNo Advanced Directives Records FoundNo Advanced Directives Records Found Additional Source Comments (unrecognized sect ion and content) No Status Records FoundNo Status Records FoundNo Status Records Found INFORMATION SOURCE (unrecogn ized section and content) DATE CREATED AUTHOR 01/13/2018 [facility] DATE CREATED AUTHOR AUTHOR'S ORGANIZ ATION 01/17/2018 [facility] DATE CREATED AUTHOR AUTHOR'S ORGANIZ ATION 02/09/2024 [facility] Reason for Visit (unrecogniz ed section and content) Reason Onset Date Comments Orders 11/26/2022 CT-Abd/Pelvis Reason Comments Follow-up 6 month med check Reason Comments Follow-up Med check Reason Onset Date Comments Appointment Request 01/05/2024 Release of Information 01/05/2024 Care Teams (unrecognized sec tion and content) Crushing Machine Operator Relationship Specialty Start Date End Date Jerome Bains DO [address] [place] [address] [id number] PCP - General 03/20/15 Crushing Machine Operator Relationship Specialty Start Date End Date Jerome Bains DO [address] [place] [address] PCP - General 03/20/15 Crushing Machine Operator Relationship Specialty Start Date End Date Jerome Bains DO [address] [place] [address] PCP - General 03/20/15 Crushing Machine Operator Relationship Specialty Start Date End Date Jerome Bains DO [address] [facility] [address] [place] [address] PCP - General 03/20/15 FOR RECORDS PERTAINING TO PATIENTS WHO ARE OR HAVE BEEN ENROLLED IN A CHEMICAL DEPENDENCY/SUBSTANCEABUSE PROGRAM, SOME INFORMATION MAY BE OMITTED. This clinical summary was aggregated from multiple sources. Caution should be exercised in using it in the provision of clinical care. This summary normalizes information from multiple sources, and as a consequence, information in this document may materially change the coding, format and clinical context of patient data. In addition, data may be omitted in some cases. CLINICAL DECISIONS SHOULD BE BASED ON THE PRIMARY CLINICAL RECORDS. [facility] [employer] [facility]. provides no warranty or guarantee of the accuracy or completeness of information in this document.
[2024-05-19] MEDS: Doxycycline 100 MG CAPSULE PO (11:03)
== END 2024-05-19 11:31 | disposition home or self-care (01) ==
LOC: ED 10:58
PROVIDERS: Emergency Provider Emergency Medicine; PCP Family Medicine; Visit Provider Emergency Medicine
DX: L03.116 Cellulitis of left lower limb (principal); I10 Essential (primary) hypertension; N40.0 Benign prostatic hyperplasia without lower urinary tract symptoms; Z88.0 Allergy status to penicillin; Z79.899 Other long term (current) drug therapy
CPT/HCPCS: 99283